=== PATIENT | male | born 1940 | race Caucasian/White ===

== ENCOUNTER 2024-09-30 13:33 | Inpatient (IN) | payer MEDICARE, OTHER ==
[~2024-09-30] VITALS: Ht 172.7 cm; Wt 88.5 kg
[2024-09-30] MEDS: IV NS 0.9% 500 ML BAG IV ONE (14:57)
[2024-09-30 15:12] LABS: BASOPHILS % (AUTO) 0.3 % (0.0-2.0); EOSINOPHILS # (AUTO) 0.3 K/uL (0.0-0.7); EOSINOPHILS % (AUTO) 3.3 % (0.0-6.0); HEMATOCRIT 37 % (39-51); HEMOGLOBIN 12.2 g/dL (13.5-17.5); LYMPHOCYTES # (AUTO) 1.5 K/uL (0.8-4.8); LYMPHOCYTES % (AUTO) 19.5 % (20.0-44.0); MEAN CORPUSCULAR HEMOGLOBIN 31 PG (26.0-33.0); MEAN CORPUSCULAR HGB CONC 33 g/dl (31.0-36.0); MEAN CORPUSCULAR VOLUME 92 fL (80-96); MONOCYTES # (AUTO) 0.6 K/uL (0.1-1.30); MONOCYTES % (AUTO) 7.7 % (2.0-12.0); NEUTROPHILS # (AUTO) 5.4 K/uL (1.8-8.9); NEUTROPHILS % (AUTO) 69.2 % (43.0-81.0); PLATELET COUNT (AUTO) 306 K/uL (150-450); RED CELL DISTRIBUTION WIDTH 13.8 % (11.5-15.0); WHITE BLOOD COUNT (AUTO) 7.9 K/uL (4.3-11.0)
[2024-09-30 15:24] LABS: CALCIUM, SERUM 8.6 mg/dL (8.5-10.1); POTASSIUM 5.1 mmol/L (3.5-5.1)
[2024-09-30 15:27] LABS: INR 1.02 (0.91-1.10); PARTIAL THROMBOPLASTIN TIME 27.6 SEC (24.3-34.3); PROTHROMBIN TIME 10.8 SECS (9.2-11.1)
[2024-09-30 15:29] LABS: ALBUMIN 3.5 g/dL (3.4-5.0); BILIRUBIN,DIRECT 0.1 mg/dL (0.0-0.2); BILIRUBIN,TOTAL 0.6 mg/dL (0.2-1.0); TOTAL PROTEIN, SERUM 8.2 g/dL (6.4-8.2)
[2024-09-30] MEDS ORDERED: LIDOCAINE 2% JEL UROJET 10 ML MM ONE ×2 (15:51→20:37)
[2024-09-30 17:17] LABS: APPEARANCE,URINE BLOODY (CLEAR); COLOR,URINE RED (YELLOW)
[2024-09-30] MEDS ORDERED: LEVOFLOXACIN 500 MG /D5W 100ML 500 MG/100 ML PIGGYBACK IV ONE (17:30)
[2024-09-30 17:32] LABS: BACTERIA,URINE 3+ /HPF (None Seen); RBC,URINE TOO NUMEROUS TO COUN /HPF (0-2); WBC,URINE 21-50 /HPF (0-3)
[2024-09-30 17:33] LABS: SQUAMOUS EPITHELIAL CELL,UR 0-2 /HPF (None Seen)
[2024-09-30] MEDS ORDERED: CLINDAMYCIN PHOSPHATE IV 600 MG/4 ML VIAL IV ONE (18:00)
[2024-09-30] MEDS ORDERED: ERGO500093 PO (18:04)
[2024-09-30] MEDS ORDERED: NAPR-1009 PO (18:04)
[2024-09-30] MEDS ORDERED: ACET-73 PO (18:04)
[2024-09-30] MEDS ORDERED: DIPH-1062 PO (18:04)
[2024-09-30] MEDS ORDERED: CLOT15CR27 TP (18:04)
[2024-09-30] MEDS ORDERED: DIVA250T4 PO (18:04)
[2024-09-30] MEDS ORDERED: EMPA10TA PO (18:04)
[2024-09-30] MEDS ORDERED: DULO60CA64 PO (18:04)
[2024-09-30] MEDS ORDERED: ATOR20TA PO (18:04)
[2024-09-30] MEDS ORDERED: CLON0.5T4 PO (18:04)
[2024-09-30] MEDS ORDERED: DOCU100C36 PO (18:04)
[2024-09-30] MEDS ORDERED: MAGN400O6 PO (18:04)
[2024-09-30] MEDS ORDERED: CLINDAMYCIN 900 MG/6 ML VIAL ONE (18:06)
[2024-09-30] MEDS ORDERED: MAGNESIUM HYDROXIDE 30 ML UDC PO PRN (18:30)
[2024-09-30] MEDS ORDERED: MAG HYDROX/AL HYDROX/SIMETH 30 ML UDC PO PRN (18:30)
[2024-09-30] MEDS ORDERED: CLINDAMYCIN 600 MG in IV NS 0.9% 46 ML IV ONE (18:30)
[2024-09-30] MEDS ORDERED: Z GUARD REMEDY 4 OZ OINT TP PRN (18:30)
[2024-09-30] MEDS ORDERED: ONDANSETRON HCL/PF 4 MG/2 ML VIAL IVP PRN (18:30)
[2024-09-30] MEDS ORDERED: ZOLPIDEM TARTRATE 5 MG TABLET PO PRN (18:30)
[2024-09-30] MEDS ORDERED: CIPROFLOXACIN IV RTU 200 ML IV ONE (19:08)
[2024-09-30] MEDS: CIPROFLOXACIN IV RTU 200 MG in PREMIX 1 EA IV SCH (19:27)
[2024-09-30] MEDS ORDERED: DEXTROSE 50%-WATER 50 ML DISP.SYRIN IV PRN (19:30)
[2024-09-30] MEDS: LIDOCAINE 2% JEL UROJET 10 ML MM ONE (21:00)
[2024-09-30 22:10] VITALS: BP 129/93; TEMP 97.7; O2SAT 93
[2024-09-30] MEDS: IV 1/2NS 1000 ML 1,000 ML IV PRN (23:05)
[2024-09-30] MEDS: MAGNESIUM HYDROXIDE 30 ML UDC PO SCH (23:26)
[2024-09-30] MEDS: BLOOD SUGAR DIAGNOSTIC 1 EACH STRIP VI SCH (23:46)
[2024-09-30] MEDS: *INSULIN REGULAR(HUMULIN R)HUM 100 UNIT/ML VIAL SQ PRN (23:47)
[2024-10-01 01:16] VITALS: BP 129/93; TEMP 97.7; O2SAT 97
[2024-10-01] MEDS: INSULIN REGULAR, HUMAN 100 UNIT/ML 3 ML VIAL SQ PRN (07:10)
[2024-10-01 07:30] LABS: BASOPHILS % (AUTO) 0.1 % (0.0-2.0); EOSINOPHILS # (AUTO) 0.1 K/uL (0.0-0.7); EOSINOPHILS % (AUTO) 1.1 % (0.0-6.0); HEMATOCRIT 34 % (39-51); HEMOGLOBIN 10.8 g/dL (13.5-17.5); LYMPHOCYTES # (AUTO) 0.8 K/uL (0.8-4.8); LYMPHOCYTES % (AUTO) 7.5 % (20.0-44.0); MEAN CORPUSCULAR HEMOGLOBIN 29 PG (26.0-33.0); MEAN CORPUSCULAR HGB CONC 32 g/dl (31.0-36.0); MEAN CORPUSCULAR VOLUME 92 fL (80-96); MONOCYTES % (AUTO) 9.3 % (2.0-12.0); NEUTROPHILS # (AUTO) 9.2 K/uL (1.8-8.9); PLATELET COUNT (AUTO) 267 K/uL (150-450); RED BLOOD CELL COUNT(AUTO) 3.71 MIL/uL (4.5-6.0); RED CELL DISTRIBUTION WIDTH 13.2 % (11.5-15.0); WHITE BLOOD COUNT (AUTO) 11.2 K/uL (4.3-11.0)
[2024-10-01] MEDS: PANTOPRAZOLE 40 MG TABLET.DR PO SCH (07:58)
[2024-10-01 07:59] LABS: CALCIUM, SERUM 8.1 mg/dL (8.5-10.1); CREATININE 1.4 mg/dL (0.6-1.3); MAGNESIUM 2.1 mg/dL (1.8-2.4); PHOSPHORUS 3.2 mg/dL (2.5-4.9); POTASSIUM 4.4 mmol/L (3.5-5.1)
[2024-10-01 08:00] VITALS: BP 120/60; TEMP 98.3; O2SAT 96
[2024-10-01] MEDS: EMPAGLIFLOZIN 10 MG TABLET PO SCH (08:27)
[2024-10-01] MEDS: CIPROFLOXACIN IV RTU 400 MG in PREMIX 1 EA IV SCH (08:27)
[2024-10-01] MEDS: clonazePAM 0.5 MG TABLET PO SCH (08:28)
[2024-10-01] MEDS: DOCUSATE SODIUM 100 MG CAPSULE PO SCH (08:28)
[2024-10-01] MEDS: diphenhydrAMINE HCL 25 MG CAPSULE PO SCH (08:28)
[2024-10-01] MEDS: DIVALPROEX SODIUM 250 MG TABLET.DR PO SCH (08:28)
[2024-10-01] MEDS: DULOXETINE HCL 30 MG CAPSULE.DR PO SCH (08:28)
[2024-10-01] MEDS: ATORVASTATIN 10 MG TABLET PO SCH (08:29)
[2024-10-01] MEDS: ACETAMINOPHEN ES 500 MG TABLET PO SCH (08:29)
[2024-10-01 08:58] LABS: THYROID STIMULATING HORMONE 4.86 uIU/mL (0.358-3.74)
[2024-10-01] MEDS ORDERED: Medication Not On Formulary EA (Atorvastatin Calcium (Lipitor) 20 MG) PO SCH (09:00)
[2024-10-01] MEDS: CLOTRIMAZOLE 1% 15 GM TUBE TP SCH (09:05)
[2024-10-01 16:00] VITALS: BP 124/71; TEMP 98.1; O2SAT 95
[2024-10-01 20:00] VITALS: BP 154/69; TEMP 98.1; O2SAT 92
[2024-10-01 20:30] VITALS: BP 154/69; TEMP 98.1; O2SAT 92
[2024-10-01] MEDS: POLYETHYLENE GLYCOL 3350 17 GM POWD.PACK PO SCH (22:08)
[2024-10-02 07:37] LABS: BASOPHILS % (AUTO) 0.4 % (0.0-2.0); EOSINOPHILS # (AUTO) 0.2 K/uL (0.0-0.7); EOSINOPHILS % (AUTO) 2.7 % (0.0-6.0); HEMATOCRIT 35 % (39-51); HEMOGLOBIN 11.3 g/dL (13.5-17.5); LYMPHOCYTES # (AUTO) 1.5 K/uL (0.8-4.8); LYMPHOCYTES % (AUTO) 19.7 % (20.0-44.0); MEAN CORPUSCULAR HEMOGLOBIN 31 PG (26.0-33.0); MEAN CORPUSCULAR HGB CONC 32 g/dl (31.0-36.0); MEAN CORPUSCULAR VOLUME 95 fL (80-96); MONOCYTES # (AUTO) 0.7 K/uL (0.1-1.30); MONOCYTES % (AUTO) 9.7 % (2.0-12.0); NEUTROPHILS # (AUTO) 5.2 K/uL (1.8-8.9); NEUTROPHILS % (AUTO) 67.5 % (43.0-81.0); PLATELET COUNT (AUTO) 259 K/uL (150-450); RED BLOOD CELL COUNT(AUTO) 3.69 MIL/uL (4.5-6.0); RED CELL DISTRIBUTION WIDTH 13.9 % (11.5-15.0); WHITE BLOOD COUNT (AUTO) 7.7 K/uL (4.3-11.0)
[2024-10-02 07:58] LABS: CALCIUM, SERUM 8.6 mg/dL (8.5-10.1); CREATININE 1.5 mg/dL (0.6-1.3); MAGNESIUM 2.3 mg/dL (1.8-2.4); PHOSPHORUS 2.7 mg/dL (2.5-4.9); POTASSIUM 4.3 mmol/L (3.5-5.1)
[2024-10-02 08:00] VITALS: BP 119/65; TEMP 98.6; O2SAT 94
[2024-10-02 16:00] VITALS: BP 148/69; TEMP 99; O2SAT 94
[2024-10-02 20:00] VITALS: BP 150/70; TEMP 97.5; O2SAT 97
[2024-10-02 20:53] VITALS: BP 150/70; TEMP 97.5; O2SAT 97
[2024-10-02] MEDS: ACETAMINOPHEN 325 MG TABLET PO PRN (22:04)
[2024-10-03 09:57] LABS: BASOPHILS % (AUTO) 0.2 % (0.0-2.0); EOSINOPHILS # (AUTO) 0.4 K/uL (0.0-0.7); EOSINOPHILS % (AUTO) 4.6 % (0.0-6.0); HEMATOCRIT 35 % (39-51); HEMOGLOBIN 11.3 g/dL (13.5-17.5); LYMPHOCYTES # (AUTO) 1.4 K/uL (0.8-4.8); MEAN CORPUSCULAR HEMOGLOBIN 30 PG (26.0-33.0); MEAN CORPUSCULAR HGB CONC 32 g/dl (31.0-36.0); MEAN CORPUSCULAR VOLUME 93 fL (80-96); MONOCYTES # (AUTO) 0.7 K/uL (0.1-1.30); MONOCYTES % (AUTO) 8.3 % (2.0-12.0); NEUTROPHILS # (AUTO) 5.6 K/uL (1.8-8.9); NEUTROPHILS % (AUTO) 69.9 % (43.0-81.0); PLATELET COUNT (AUTO) 289 K/uL (150-450); RED BLOOD CELL COUNT(AUTO) 3.79 MIL/uL (4.5-6.0); RED CELL DISTRIBUTION WIDTH 13.8 % (11.5-15.0)
[2024-10-03 10:09] LABS: CALCIUM, SERUM 8.1 mg/dL (8.5-10.1); CREATININE 1.5 mg/dL (0.6-1.3); PHOSPHORUS 2.7 mg/dL (2.5-4.9); POTASSIUM 4.2 mmol/L (3.5-5.1)
[2024-10-03 20:00] VITALS: BP 148/85; TEMP 98.4; O2SAT 96
[2024-10-04 07:39] LABS: BASOPHILS % (AUTO) 0.3 % (0.0-2.0); EOSINOPHILS # (AUTO) 0.1 K/uL (0.0-0.7); EOSINOPHILS % (AUTO) 1.1 % (0.0-6.0); HEMATOCRIT 31 % (39-51); LYMPHOCYTES # (AUTO) 1.1 K/uL (0.8-4.8); LYMPHOCYTES % (AUTO) 12.1 % (20.0-44.0); MEAN CORPUSCULAR HEMOGLOBIN 30 PG (26.0-33.0); MEAN CORPUSCULAR HGB CONC 32 g/dl (31.0-36.0); MEAN CORPUSCULAR VOLUME 92 fL (80-96); MONOCYTES # (AUTO) 0.9 K/uL (0.1-1.30); MONOCYTES % (AUTO) 9.8 % (2.0-12.0); NEUTROPHILS # (AUTO) 7.2 K/uL (1.8-8.9); NEUTROPHILS % (AUTO) 76.7 % (43.0-81.0); PLATELET COUNT (AUTO) 262 K/uL (150-450); RED BLOOD CELL COUNT(AUTO) 3.39 MIL/uL (4.5-6.0); RED CELL DISTRIBUTION WIDTH 13.6 % (11.5-15.0); WHITE BLOOD COUNT (AUTO) 9.4 K/uL (4.3-11.0)
[2024-10-04 07:58] LABS: CALCIUM, SERUM 8.2 mg/dL (8.5-10.1); CREATININE 1.4 mg/dL (0.6-1.3); MAGNESIUM 2.1 mg/dL (1.8-2.4); PHOSPHORUS 2.7 mg/dL (2.5-4.9); POTASSIUM 4.5 mmol/L (3.5-5.1)
[2024-10-04 08:00] VITALS: BP 127/56; TEMP 98.4; O2SAT 98
[2024-10-04 08:06] VITALS: TEMP 98.4
[2024-10-04] MEDS ORDERED: CIPR500T5 PO (10:18)
== END 2024-10-04 14:35 | disposition home health service (06) | DRG 689 ==
LOC: ER 14:05 → MED 20:42
PROVIDERS: ADMIT Student in an Organized Health Care Education/Training Program; ATTEND Nurse Practitioner Acute Care
PROC: 0T9B7ZZ Drainage of Bladder, Via Natural or Artificial Opening (ICD-10-PCS; principal; 2024-10-01)
DX: N30.01 Acute cystitis with hematuria (principal); N17.0 Acute kidney failure with tubular necrosis; N12 Tubulo-interstitial nephritis, not specified as acute or chronic; F32.A Depression, unspecified; F41.9 Anxiety disorder, unspecified; E78.5 Hyperlipidemia, unspecified; F29 Unspecified psychosis not due to a substance or known physiological condition; K59.00 Constipation, unspecified; Z88.0 Allergy status to penicillin; D64.9 Anemia, unspecified; B96.20 Unspecified Escherichia coli [E. coli] as the cause of diseases classified elsewhere; N13.9 Obstructive and reflux uropathy, unspecified; G31.84 Mild cognitive impairment of uncertain or unknown etiology; E11.9 Type 2 diabetes mellitus without complications; H54.3 Unqualified visual loss, both eyes
CPT/HCPCS: 36415; 80048-TC; 80076-TC; 81001; 82962-TC; 83690-TC; 83735-TC; 84100-TC; 84439-TC; 84443-TC; 85025-TC; 85730-TC; 87086-TC; 97110-TC; 97116-TC; 97530-TC; A4216; A4217; A4223; G0378; J0744; J1815; J3490; J7040; Q0163

== ENCOUNTER 2025-03-31 18:14 | Inpatient (IN) | payer MEDICARE, OTHER ==
[~2025-03-31] VITALS: Ht 175.3 cm; Wt 72.1 kg
[~2025-03-31 18:14] MED LIST: ACET-73 PO; ATOR20TA PO; CIPR500T5 PO; CLON0.5T4 GT; CLOT15CR27 TP; DIPH-1062 PO; DIVA250T4 GT; DOCU100C36 GT; DULO60CA64 GT; EMPA10TA PO; ERGO500093 GT; MAGN400O6 GT; METH1TAB69 GT; METR500P4 IV; NAPR-1009 PO; VANC1.5V IV
[2025-03-31 19:00] LABS: PLATELET COUNT (AUTO) 521 K/uL (150-450); RED BLOOD CELL COUNT(AUTO) 2.84 MIL/uL (4.5-6.0); RED CELL DISTRIBUTION WIDTH 18.1 % (11.5-15.0); WHITE BLOOD COUNT (AUTO) 14.5 K/uL (4.3-11.0)
[2025-03-31 19:06] LABS: CALCIUM, SERUM 8.3 mg/dL (8.5-10.1); CREATININE 1.0 mg/dL (0.6-1.3); SODIUM SERUM 136 mmol/L (136-145); UREA NITROGEN, BLOOD 44 mg/dL (7-18)
[2025-03-31 19:19] LABS: ASPARTATE AMINOTRANSFERASE 20 U/L (15-37); NT-PRO BNP 4094 pg/mL (0-125); TOTAL PROTEIN, SERUM 6.9 g/dL (6.4-8.2)
[2025-03-31] MEDS ORDERED: METOPROLOL TARTRATE 25 MG TABLET ONE (20:30)
[2025-03-31] MEDS ORDERED: METOPROLOL TARTRATE INJ 5 MG/5 ML AMPUL ONE (20:30)
[2025-03-31] MEDS: METOPROLOL TARTRATE INJ 5 MG/5 ML AMPUL IV ONE (20:33)
[2025-03-31] MEDS: METOPROLOL TARTRATE 25 MG TABLET PO ONE (20:45)
[2025-03-31] MEDS ORDERED: Z GUARD REMEDY 4 OZ OINT TP PRN (21:00)
[2025-03-31] MEDS ORDERED: DEXTROSE 50%-WATER 50 ML DISP.SYRIN IV PRN (21:00)
[2025-03-31] MEDS ORDERED: ONDANSETRON HCL/PF 4 MG/2 ML VIAL IVP PRN (21:00)
[2025-03-31 22:15] VITALS: BP 115/83; TEMP 98.2; O2SAT 99
[2025-03-31] MEDS ORDERED: DOXYCYCLINE 100 MG VIAL ONE (23:13)
[2025-03-31] MEDS: DOXYCYCLINE 100 MG in IV D5W 100 ML IV SCH (23:33)
[2025-04-01] VITALS: BP 108/68; TEMP 98.1; O2SAT 100
[2025-04-01] MEDS: JEVITY 1.2 CAL 1,000 ML BOTTLE GT PRN (00:17)
[2025-04-01] MEDS: BLOOD SUGAR DIAGNOSTIC 1 EACH STRIP IN SCH (00:31)
[2025-04-01] MEDS: INSULIN REGULAR, HUMAN 100 UNIT/ML 3 ML VIAL SQ PRN (00:35)
[2025-04-01 04:00] VITALS: BP 108/77; TEMP 98.2; O2SAT 99
[2025-04-01 06:46] LABS: PLATELET COUNT (AUTO) 548 K/uL (150-450); RED BLOOD CELL COUNT(AUTO) 2.94 MIL/uL (4.5-6.0); RED CELL DISTRIBUTION WIDTH 17.6 % (11.5-15.0); WHITE BLOOD COUNT (AUTO) 13.4 K/uL (4.3-11.0)
[2025-04-01 07:11] LABS: CALCIUM, SERUM 8.5 mg/dL (8.5-10.1); CREATININE 1.2 mg/dL (0.6-1.3); PHOSPHORUS 3.7 mg/dL (2.5-4.9); SODIUM SERUM 142 mmol/L (136-145); UREA NITROGEN, BLOOD 44 mg/dL (7-18)
[2025-04-01 08:00] VITALS: BP 119/82; TEMP 97.5; O2SAT 92
[2025-04-01] MEDS ORDERED: BISA10SU11 RC (08:07)
[2025-04-01] MEDS ORDERED: FERR325T24 GT (08:07)
[2025-04-01] MEDS ORDERED: POLY15DR31 EACHEYE (08:07)
[2025-04-01] MEDS ORDERED: CRAN425C6 GT (08:07)
[2025-04-01] MEDS ORDERED: AMIN30LI66 GT (08:07)
[2025-04-01] MEDS ORDERED: ZINC220C6 GT (08:07)
[2025-04-01] MEDS ORDERED: CALC500T53 GT (08:07)
[2025-04-01] MEDS ORDERED: SODI650T GT (08:07)
[2025-04-01] MEDS ORDERED: NUT.250L18 GT (08:07)
[2025-04-01] MEDS ORDERED: ACET-2070 GT (08:07)
[2025-04-01] MEDS ORDERED: ACET325T53 GT (08:07)
[2025-04-01] MEDS ORDERED: MULT-213 GT (08:07)
[2025-04-01] MEDS ORDERED: ASCO500T10 GT (08:07)
[2025-04-01] MEDS ORDERED: LEVO25TA2 GT (08:07)
[2025-04-01] MEDS ORDERED: ROSU5TAB GT (08:07)
[2025-04-01] MEDS ORDERED: INSU100V39 SQ (08:07)
[2025-04-01] MEDS ORDERED: METO25TA6 GT (08:07)
[2025-04-01] MEDS ORDERED: CEFT1VIA14 IV (08:07)
[2025-04-01] MEDS ORDERED: MIRT7.5T10 GT (08:07)
[2025-04-01] MEDS: DIGOXIN INJ 0.5 MG/2 ML AMPUL IV STA (08:20)
[2025-04-01] MEDS: LEVOTHYROXINE INJ 100 MCG VIAL IV STA (08:20)
[2025-04-01] MEDS: PANTOPRAZOLE 40 MG TABLET.DR PO SCH (08:20)
[2025-04-01] MEDS: METOPROLOL TARTRATE 25 MG TABLET GT SCH (08:34)
[2025-04-01] MEDS ORDERED: METOPROLOL TARTRATE 25 MG TABLET GT SCH (09:00)
[2025-04-01 12:00] VITALS: BP 137/71; TEMP 97.9; O2SAT 96
[2025-04-01] MEDS: FUROSEMIDE 40 MG/4 ML VIAL IV SCH (12:42)
[2025-04-01 16:00] VITALS: BP 122/63; TEMP 97.3; O2SAT 97
[2025-04-01 20:00] VITALS: BP 110/71; TEMP 97.3; O2SAT 97
[2025-04-01] MEDS: ACETAMINOPHEN 325 MG TABLET PO PRN (22:32)
[2025-04-02] VITALS (7 sets, daily range): BP systolic 95–143; BP diastolic 47–81; TEMP 97.5–99; O2SAT 94–99
[2025-04-02 06:46] LABS: APPEARANCE,URINE CLEAR (CLEAR); BLOOD, URINE NEGATIVE Ery/uL (NEGATIVE); LEUKOCYTE ESTERASE ,URINE 2+ (NEGATIVE); NITRITE, URINE NEGATIVE (NEGATIVE); UGLUCOSE NEGATIVE (NEGATIVE)
[2025-04-02 06:52] LABS: PLATELET COUNT (AUTO) 622 K/uL (150-450); RED BLOOD CELL COUNT(AUTO) 2.91 MIL/uL (4.5-6.0); RED CELL DISTRIBUTION WIDTH 17.5 % (11.5-15.0); WHITE BLOOD COUNT (AUTO) 12.7 K/uL (4.3-11.0)
[2025-04-02 06:56] LABS: CALCIUM, SERUM 8.3 mg/dL (8.5-10.1); CREATININE 1.3 mg/dL (0.6-1.3); PHOSPHORUS 3.2 mg/dL (2.5-4.9); SODIUM SERUM 143.0 mmol/L (136-145); UREA NITROGEN, BLOOD 45.0 mg/dL (7-18)
[2025-04-02] MEDS: LEVOTHYROXINE SODIUM 50 MCG TABLET PO SCH (08:25)
[2025-04-02 08:30] LABS: ADD URINE CULTURE YES; SQUAMOUS EPITHELIAL CELL,UR Few /HPF (None Seen)
[2025-04-02] MEDS ORDERED: GLUCERNA 1.2 1,000 ML BOTTLE NG PRN (14:30)
[2025-04-02] MEDS: GLUCERNA 1.2 1,000 ML BOTTLE NG PRN (14:32)
[2025-04-03] VITALS (10 sets, daily range): BP systolic 87–146; BP diastolic 63–88; TEMP 97.7–99.8; O2SAT 90–100
[2025-04-03 06:40] LABS: PLATELET COUNT (AUTO) 665 K/uL (150-450); RED BLOOD CELL COUNT(AUTO) 3.06 MIL/uL (4.5-6.0); RED CELL DISTRIBUTION WIDTH 17.8 % (11.5-15.0); WHITE BLOOD COUNT (AUTO) 13.3 K/uL (4.3-11.0)
[2025-04-03 07:03] LABS: CALCIUM, SERUM 8.8 mg/dL (8.5-10.1); CREATININE 1.2 mg/dL (0.6-1.3); PHOSPHORUS 3.6 mg/dL (2.5-4.9); SODIUM SERUM 145 mmol/L (136-145); UREA NITROGEN, BLOOD 43 mg/dL (7-18)
[2025-04-03] MEDS ORDERED: GUAIFENESIN LA 600 MG TABLET.SA PO SCH (09:30)
[2025-04-03] MEDS: IPRATROPIUM NEB FS 0.5 MG/2.5 ML AMPUL.NEB NEB SCH (09:30)
[2025-04-03] MEDS: POLYETHYLENE GLYCOL 3350 17 GM POWD.PACK GT SCH (10:35)
[2025-04-03] MEDS: DOCUSATE SODIUM LIQ 100 MG/10 ML UDC NG SCH (10:35)
[2025-04-03] MEDS: ACETYLCYSTEINE 10% SOLN 400 MG/4 ML VIAL NEB SCH (14:31)
[2025-04-03] MEDS: SENNOSIDES 8.6 MG TABLET GT SCH (21:02)
[2025-04-04] VITALS (13 sets, daily range): BP systolic 110–132; BP diastolic 61–76; TEMP 97.5–98.8; O2SAT 93–100
[2025-04-04] MEDS: PANTOPRAZOLE 40 MG/PACK PACK NG SCH (08:24)
[2025-04-04] MEDS: POTASSIUM CHLORIDE 20 MEQ TAB.PRT.SR PO SCH (09:00)
[2025-04-04] MEDS ORDERED: FUROSEMIDE 100 MG/10 ML VIAL IV SCH (09:00)
[2025-04-04] MEDS: POTASSIUM CHLORIDE 20 MEQ POWDER PACKET PO SCH (09:48)
[2025-04-04 10:52] LABS: ABG BASE EXCESS 10.4 mmol/L (-2.0-3.0); ABG OXYGEN SATURATION 97.4 % (94.0-98.0); ABG PCO2 53.2 mmHg (35.0-48.0); ABG PH 7.446 (7.350-7.450); ABG PO2 99.9 mmHg (83.0-108.0); ABG TOTAL HEMOGLOBIN 9.6 G/dL (13.5-17.5); FLOW, BLOOD GAS 3.00 L/min (0.00-30.00); FRACTIONATED INSPIRED OXYGEN 32.0 %; SITE, ABG LEFT RADIAL
[2025-04-04] MEDS: FUROSEMIDE 100 MG/10 ML VIAL IV SCH (12:05)
[2025-04-05] VITALS (9 sets, daily range): BP systolic 107–123; BP diastolic 64–80; TEMP 97.3–99.3; O2SAT 94–98
[2025-04-05 06:40] LABS: PLATELET COUNT (AUTO) 792 K/uL (150-450); RED BLOOD CELL COUNT(AUTO) 3.20 MIL/uL (4.5-6.0); RED CELL DISTRIBUTION WIDTH 18.0 % (11.5-15.0); WHITE BLOOD COUNT (AUTO) 14.1 K/uL (4.3-11.0)
[2025-04-05 06:49] LABS: ASPARTATE AMINOTRANSFERASE 22.0 U/L (15-37); CALCIUM, SERUM 9.0 mg/dL (8.5-10.1); CREATININE 1.2 mg/dL (0.6-1.3); PHOSPHORUS 4.4 mg/dL (2.5-4.9); SODIUM SERUM 140.0 mmol/L (136-145); TOTAL PROTEIN, SERUM 8.3 g/dL (6.4-8.2); UREA NITROGEN, BLOOD 48.0 mg/dL (7-18)
[2025-04-05] MEDS: BUMETANIDE INJ 8 MG in IV NS 0.9% 48 ML IV ONE (11:05)
[2025-04-05] MEDS: MEROPENEM 500 MG in IV NS 0.9% 50 ML IV SCH (12:57)
[2025-04-06 04:00] VITALS: BP 110/62; TEMP 98.2; O2SAT 97
[2025-04-06 07:38] VITALS: O2SAT 95
[2025-04-06 08:00] VITALS: BP 107/60; TEMP 98; O2SAT 99
[2025-04-06 12:00] VITALS: BP 111/65
[2025-04-06 14:03] VITALS: O2SAT 96
== END 2025-04-06 16:05 | DRG 308 ==
LOC: ER 18:22 → TELE 20:33 → TELE1 21:41 → MEDSG1 04-05 09:28
PROVIDERS: ATTEND Internal Medicine
DX: I48.20 Chronic atrial fibrillation, unspecified (principal); E43 Unspecified severe protein-calorie malnutrition; J15.69 Pneumonia due to other Gram-negative bacteria; N39.0 Urinary tract infection, site not specified; D68.59 Other primary thrombophilia; I50.32 Chronic diastolic (congestive) heart failure; E87.3 Alkalosis; N17.9 Acute kidney failure, unspecified; J90 Pleural effusion, not elsewhere classified; I13.0 Hypertensive heart and chronic kidney disease with heart failure and stage 1 through stage 4 chronic kidney disease, or unspecified chronic kidney disease; Z16.12 Extended spectrum beta lactamase (ESBL) resistance; G93.49 Other encephalopathy; I48.92 Unspecified atrial flutter; D63.8 Anemia in other chronic diseases classified elsewhere; D75.839 Thrombocytosis, unspecified; E03.9 Hypothyroidism, unspecified; E78.5 Hyperlipidemia, unspecified; E88.09 Other disorders of plasma-protein metabolism, not elsewhere classified; Z88.0 Allergy status to penicillin; Z79.84 Long term (current) use of oral hypoglycemic drugs; R13.10 Dysphagia, unspecified; Z74.01 Bed confinement status; J42 Unspecified chronic bronchitis; M19.90 Unspecified osteoarthritis, unspecified site; Z85.6 Personal history of leukemia; Z68.23 Body mass index [BMI] 23.0-23.9, adult; N18.9 Chronic kidney disease, unspecified; B96.4 Proteus (mirabilis) (morganii) as the cause of diseases classified elsewhere; L90.5 Scar conditions and fibrosis of skin; L98.8 Other specified disorders of the skin and subcutaneous tissue; F01.50 Vascular dementia, unspecified severity, without behavioral disturbance, psychotic disturbance, mood disturbance, and anxiety; E11.22 Type 2 diabetes mellitus with diabetic chronic kidney disease; F32.A Depression, unspecified
CPT/HCPCS: 31720; 36415; 36600; 71045-TC; 71250-TC; 80048-TC; 80053-TC; 80076-TC; 81001; 82803-TC; 82962-TC; 83735-TC; 83880; 84100-TC; 84439-TC; 84443-TC; 84484-TC; 85025-TC; 87081-TC; 87086-TC; 87186-TC; 93307-TC; 94799-TC; A4223; A6213; G0378; J1160; J1815; J1938; J2185; J3490; J7030; J7050; J7060